=== PATIENT | female | born 1945 | race Caucasian/White ===

== ENCOUNTER 2018-08-30 19:05 | Emergency (ER) | payer MEDICARE ==
[2018-08-30 19:43] LABS: ABSOLUTE EOSINOPHILS # (AUTO) 0.2 10^3/uL (0.0-0.6); ABSOLUTE MONOCYTES (AUTO) 0.6 10^3/uL (0.1-1.4); ABSOLUTE NEUT (AUTO) 7.8 10^3/uL (1.7-8.2); BASOPHILS % (AUTO) 0.4 % (0-2); EOSINOPHILS % (AUTO) 1.7 % (0-6); HEMATOCRIT 36.7 % (36.0-47.0); HEMOGLOBIN 12.5 g/dL (12.0-15.5); LYMPHOCYTES % (AUTO) 25.4 % (13-45); MEAN CORPUSCULAR HEMOGLOBIN 29.7 pg (27.0-33.4); MEAN CORPUSCULAR HGB CONC 34.1 g/dL (32.0-36.0); MEAN CORPUSCULAR VOLUME 87 fl (80-97); MONOCYTES % (AUTO) 5.5 % (3-13); PLATELET COUNT 249 10^3/uL (150-450); RED BLOOD COUNT 4.22 10^6/uL (3.72-5.28); RED CELL DISTRIBUTION WIDTH 13.9 % (11.5-14.0); TOTAL CELLS COUNTED % (AUTO) 100 %; WHITE BLOOD COUNT 11.7 10^3/uL (4.0-10.5)
--- NOTE | 2018-08-30 19:45 | ER Document Report ---
ED General - General Chief Complaint: Near Syncope Stated Complaint: PALPITATIONS Time Seen by Provider: 08/30/18 19:15 Notes: Patient is a 73-year-old female presenting to the emergency department via EMS for syncopal episode. Patient is in the emergency room with her son who witnessed the event. Today was the patient's 's . Family states they have been on her feet all day which is abnormal for the patient. Son states the patient was at dinner when she had a blank stare on her face. Son states her eyes rolled back into her head and she had some minor arm twitching. Son states patient was not responding to him at this time. This incident lasted 1 minute. Son stated it took about 4 minutes for the patient to come completely around to her baseline. Son stated the patient was then telling everyone not to worry about her and was upset that 911 was called. Family denies that the pt. ever fell to the ground, also denies hitting her head neck or back. Patient states she remembers feeling as though she was drunk. She states she felt woozy and then remembers yelling at her son for calling 911. Patient states she has not had any EtOH today. Patient states within the last 3 weeks she was to her primary care provider for shortness of breath. States her BNP was around 1400. States they increased her Lasix and her Coreg. States she also got an echo 2 weeks ago. States her social service manager Dr. Zazueta told her that her ECHO was normal. Patient states she is scheduled for a stress test this Friday. States her last stress test was 3 years ago. Patient states since increase in Lasix she has no longer felt short of breath and she also has noticed no swelling in bilateral legs. Patient is currently denying all complaints to include chest pain, shortness of breath, nausea, vomiting, diarrhea, fever, URI symptoms, dysuria, abdominal pain. Patient's social service manager is Dr. Zazueta, PCP Dr. Prather. Past medical history: Congestive heart failure, hypertension, hyperlipidemia, coronary artery disease, depression Medications: Lasix, Wellbutrin, atorvastatin, Coreg Allergies: Sulfa Surgical history: CABG with aortic valve replacement, cholecystectomy, hysterectomy, appendectomy - Related Data Allergies/Adverse Reactions: Sulfa (Sulfonamide Antibiotics) Allergy (Verified 08/30/18 19:45) Past Medical History - General Information source: Patient, Relative - Social History Smoking Status: Unknown if Ever Smoked Lives with: Family Family History: Reviewed & Not Pertinent Review of Systems - Review of Systems Constitutional: See HPI EENT: See HPI Cardiovascular: See HPI Respiratory: See HPI Gastrointestinal: See HPI Genitourinary: See HPI Female Genitourinary: See HPI Musculoskeletal: See HPI Skin: See HPI Hematologic/Lymphatic: See HPI Neurological/Psychological: See HPI Physical Exam - Vital signs Vitals: Resp Pulse Ox 12 98 08/30/18 19:24 08/30/18 19:24 - Notes Notes: GENERAL: Alert, interacts well. No acute distress. HEAD: Normocephalic, atraumatic. EYES: Pupils equal, round, and reactive to light. Extraocular movements intact. ENT: Oral mucosa moist, tongue midline. NECK: Full range of motion. Supple. Trachea midline. LUNGS: Clear to auscultation bilaterally, no wheezes, rales, or rhonchi. No respiratory distress. HEART: Regular rate and rhythm. No murmur ABDOMEN: Soft, non-tender. Non-distended. Bowel sounds present in all 4 quadrants. EXTREMITIES: Moves all 4 extremities spontaneously. No edema, normal radial and dorsalis pedis pulses bilaterally. No cyanosis. BACK: no cervical, thoracic, lumbar midline tenderness. No saddle anesthesia, normal distal neurovascular exam. NEUROLOGICAL: Alert and oriented x3. Normal speech. PSYCH: Normal affect, normal mood. SKIN: Warm, dry, normal turgor. No rashes or lesions noted. CVA SCALE 0 Course - Re-evaluation Re-evalutation: Discussed case with Dr. Titus who recommends offering the patient admission if wanted. Patient continues to deny chest pain or shortness of breath at any point in time. Also continues to state that her BNP was 1400 at her last primary care visit. States she did not eat at all today and was on her feet all day. States it has been very stressful due to today being her 's . Patient states she has a stress test scheduled for this Friday. States she will call her primary care Dr. Prather in the morning to discuss what happened. Patient adamant about being discharged. States she does not want to be admitted. Urine does show signs of infection we will treat for same. Culture sent. Close return precautions discussed with patient and patient's son in the room. Patient at mental baseline entire stay in the emergency department. - Vital Signs Vital signs: Temp Pulse Resp BP Pulse Ox 98.0 F 18 133/52 H 97 08/30/18 22:52 08/30/18 22:52 08/30/18 22:52 08/30/18 22:52 - Laboratory Result Diagrams: 08/30/18 18:50 08/30/18 18:50 Laboratory results interpreted by me: 08/30/18 08/30/18 08/30/18 18:10 18:50 18:50 WBC 11.7 H Potassium 3.2 L Glucose 140 H Creatine Kinase 21 L NT-Pro-B Natriuret Pep Urine Protein 100 H Urine Urobilinogen 2.0 H Ur Leukocyte Esterase TRACE H 08/30/18 18:50 WBC Potassium Glucose Creatine Kinase NT-Pro-B Natriuret Pep 1480 H Urine Protein Urine Urobilinogen Ur Leukocyte Esterase Discharge - Discharge Clinical Impression: Urinary tract infection Qualifiers: Urinary tract infection type: acute cystitis Hematuria presence: without hematuria Qualified Code(s): N30.00 - Acute cystitis without hematuria Syncope Qualifiers: Syncope type: unspecified Qualified Code(s): R55 - Syncope and collapse Condition: Stable Disposition: HOME, SELF-CARE Instructions: Cephalexin ([facility]), Urinary Tract Infection ([facility]) Additional Instructions: As we discussed you have been seen in the emergency room for syncope. Your lab results show no signs of overwhelming infection. They also showed no obvious signs of bleeding. You should call your primary care provider in the next 24- 48 hours for follow-up. Please keep your appointment for Friday for your cardiac stress test. Take antibiotics as prescribed for urinary tract infection. Return to the emergency room should you have any chest pain, shortness of breath, pass out again, or any other concerning symptoms. Prescriptions: Cephalexin Monohydrate [Keflex 500 mg Capsule] 500 mg PO BID 7 Days #14 capsule Referrals: JABARI PRATHER MD [Primary Care Provider] - Follow up as needed
--- NOTE | 2018-08-30 19:45 | EKG REPORT ---
SEVERITY:- ABNORMAL ECG - SINUS RHYTHM LEFT BUNDLE BRANCH BLOCK TYPE OF IVCD : Confirmed by: Alaina Chirinos MD 30-Aug-2018 19:45:30
[2018-08-30 19:50] LABS: ALANINE AMINOTRANSFERASE 15 U/L (9-52); ALBUMIN 3.8 g/dL (3.5-5.0); ALKALINE PHOSPHATASE 60 U/L (38-126); ANION GAP 9 (5-19); ASPARTATE AMINO TRANSFERASE 15 U/L (14-36); BILIRUBIN,DIRECT 0.3 mg/dL (0.0-0.4); BILIRUBIN,TOTAL 0.8 mg/dL (0.2-1.3); BLOOD UREA NITROGEN 13 mg/dL (7-20); CALCIUM 8.9 mg/dL (8.4-10.2); CARBON DIOXIDE 28 mmol/L (22-30); CHLORIDE 104 mmol/L (98-107); CREATINE KINASE 21 U/L (30-135); GLUCOSE 140 mg/dL (75-110); POTASSIUM 3.2 mmol/L (3.6-5.0); SODIUM 140.5 mmol/L (137-145); TOTAL PROTEIN 7.2 g/dL (6.3-8.2)
[2018-08-30 20:02] LABS: CREATINE KINASE MB 0.37 ng/mL (<4.55); TROPONIN I 0.019 ng/mL
[2018-08-30 20:40] LABS: APPEARANCE,URINE TURBID; BILIRUBIN,URINE NEGATIVE (NEGATIVE); COLOR,URINE AMBER; GLUCOSE, URINE NEGATIVE (NEGATIVE); KETONES,URINE NEGATIVE (NEGATIVE); LEUKOCYTE ESTERASE,URINE TRACE (NEGATIVE); NITRITE,URINE NEGATIVE (NEGATIVE); PROTEIN,URINE 100 mg/dL (NEGATIVE); URINE SPECIFIC GRAVITY 1.028
--- NOTE | 2018-08-30 20:50 | RADIOLOGY REPORT (SQ) ---
EXAM DESCRIPTION: CHEST SINGLE VIEW COMPLETED DATE/TIME: 08/30/2018 8:14 pm REASON FOR STUDY: CHF SOB COMPARISON: None. NUMBER OF VIEWS: One view. TECHNIQUE: Single frontal radiographic view of the chest acquired. LIMITATIONS: None. FINDINGS: LUNGS AND PLEURA: No opacities, masses or pneumothorax. Small left pleural effusion. MEDIASTINUM AND HILAR STRUCTURES: No masses. Contour normal. HEART AND VASCULAR STRUCTURES: Heart normal in size. Normal vasculature. Prior CABG. BONES: No acute findings. HARDWARE: CABG hardware. OTHER: No other significant finding. IMPRESSION: Small left pleural effusion. TECHNICAL DOCUMENTATION: JOB ID: [id number] [id number] 2010 [employer]- All Rights Reserved Reading location - IP/workstation name: [email or web address]
[2018-08-30 22:59] VITALS: BP 133/52
== END 2018-08-30 22:59 | disposition home or self-care (01) ==
LOC: ER 19:05
DX: N30.00 Acute cystitis without hematuria (principal); R55 Syncope and collapse; R00.2 Palpitations; R42 Dizziness and giddiness; I50.9 Heart failure, unspecified; I10 Essential (primary) hypertension; E78.5 Hyperlipidemia, unspecified; I25.10 Atherosclerotic heart disease of native coronary artery without angina pectoris; Z79.899 Other long term (current) drug therapy; Z95.1 Presence of aortocoronary bypass graft
CPT/HCPCS: 36415; 71045; 80053; 81001; 82550; 82553; 83880; 84484; 85025; 87086; 93005; 93010; 99285

== ENCOUNTER 2019-11-22 09:26 | Emergency (ER) | payer MEDICARE ==
[2019-11-22 09:48] LABS: HEMATOCRIT 40.1 % (36.0-47.0); HEMOGLOBIN 13.5 g/dL (12.0-15.5); MEAN CORPUSCULAR HEMOGLOBIN 30.4 pg (27.0-33.4); MEAN CORPUSCULAR HGB CONC 33.8 g/dL (32.0-36.0); MEAN CORPUSCULAR VOLUME 90 fl (80-97); PLATELET COUNT 197 10^3/uL (150-450); RED BLOOD COUNT 4.45 10^6/uL (3.72-5.28); RED CELL DISTRIBUTION WIDTH 14.7 % (11.5-14.0); WHITE BLOOD COUNT 8.7 10^3/uL (4.0-10.5)
[2019-11-22] MEDS ORDERED: LIDOCAINE 1%/EPINEPHRINE INJ 20 ML VIAL INJ ONE (09:49)
--- NOTE | 2019-11-22 09:51 | ER Document Report ---
ED General - General Chief Complaint: Fall Injury Stated Complaint: FALL Primary Care Provider: FLORIAN KIM MD [Primary Care Provider] - Follow up as needed Notes: 74-year-old female presents with syncope. [place], has CHF normally gets short of breath, but also does not take Lasix until the afternoon if she has to be out in public. She became very winded and leaned against the low wall. She knew she was on the ground with a bleeding head wound. She does not have neck pain or neuro symptoms. She denies chest pain or shortness of breath beyond her usual. Laceration to the occiput. No blood thinners. - Related Data Allergies/Adverse Reactions: Sulfa (Sulfonamide Antibiotics) Allergy (Verified 08/30/18 19:45) Home Medications: lasix, potssium, carvedilol, ibuprofen Past Medical History - Social History Smoking Status: Never Smoker Family History: Reviewed & Not Pertinent Patient has suicidal ideation: No Patient has homicidal ideation: No - Past Medical History Cardiac Medical History: Reports: Hx Congestive Heart Failure, Hx Hype rcholesterolemia, Hx Hypertension Renal/ Medical History: Denies: Hx Peritoneal Dialysis Past Surgical History: Reports: Hx Appendectomy, Hx Cardiac Surgery - aortic valve replacement, Hx Cholecystectomy, Hx Hysterectomy Review of Systems - Review of Systems Notes: REVIEW OF SYSTEMS GEN: Denies fever, chills, weight loss ENT: Denies sore throat, nasal discharge, ear pain EYES: Denies blurry vision, eye pain, discharge CV: Denies chest pain, palpitations, edema RESP: Dyspnea on exertion GI: Denies abdominal pain, nausea, vomiting, diarrhea MSK: Denies joint pain/swelling, edema, SKIN: Denies rash, skin lesions LYMPH: Denies swollen glands/lymph nodes NEURO: Headache, denies focal weakness or numbness, dizziness PSYCH: Denies depression, suicidal or homicidal ideation PHYSICAL EXAMINATION General: No acute distress, well-nourished Head: 3 cm right occipital laceration bleeding controlled normocephalic ENT: Mouth normal, oropharynx moist, no exudates or tonsillar enlargement Eyes: Conjunctiva normal, pupils equal, lids normal Neck: No JVD, supple, no guarding CVS: Normal rate, regular rhythm, no murmurs Resp: No resp distress, equal and normal breath sounds bilaterally GI: Nondistended, soft, no tenderness to palpation, no rebound or guarding Ext: No deformities, trace bilateral nonpitting foot/ankle edema, normal range of motion in upper and lower ext Back: No CVA or midline TTP Skin: No rash, warm Lymphatic: No lymphadeopathy noted Neuro: Awake, alert. Face symmetric. GCS 15. Physical Exam - Vital signs Vitals: Resp Pulse Ox 10 L 94 11/22/19 09:40 11/22/19 09:40 Course - Re-evaluation Re-evalutation: 11/22/19 12:32 Patient presents with syncope. She was exerting herself with known CHF and ski pped her diuretic dose, I suspect she became dizzy/lightheaded and may be hypoxic and had syncope but she is now asymptomatic. On further inspection the lack to her head is actually a bruise and abrasion and there is nothing to sew up. Her CT head is negative her labs are normal her EKG is stable, and on the monitor she has normal vital signs and is asymptomatic. She is stable for discharge back to her home and will follow up with primary care. I have discussed with the patient there likely diagnosis, aftercare plan, follow-up plans and my usual and customary return precautions. They verbalized understanding of this. - Vital Signs Vital signs: Temp Pulse Resp BP Pulse Ox 97.8 F 94 12 113/79 96 11/22/19 12:01 11/22/19 12:01 11/22/19 12:01 11/22/19 12:01 11/22/19 12:01 - Laboratory Result Diagrams: 11/22/19 09:37 11/22/19 09:37 Laboratory results interpreted by me: 11/22/19 11/22/19 09:37 09:37 RDW 14.7 H Glucose 120 H Discharge - Discharge Clinical Impression: Scalp laceration Qualifiers: Encounter type: initial encounter Qualified Code(s): S01.01XA - Laceration without foreign body of scalp, initial encounter Syncope Qualifiers: Syncope type: unspecified Qualified Code(s): R55 - Syncope and collapse Condition: Good Disposition: HOME, SELF-CARE Instructions: Laceration Care ([facility]), Syncopal Episode ([facility]) Additional Instructions: Neil need to be removed in 10 days Referrals: KIM,FLORIAN A, MD [Primary Care Provider] - Follow up as needed
[2019-11-22 09:53] LABS: INTERNATIONAL RATION (INR) 1.21; PROTHROMBIN TIME 15.4 SEC (11.4-15.4)
[2019-11-22 10:17] LABS: ALKALINE PHOSPHATASE 64 U/L (38-126); ANION GAP 10 (5-19); ASPARTATE AMINO TRANSFERASE 23 U/L (14-36); BILIRUBIN,DIRECT 0.2 mg/dL (0.0-0.4); BLOOD UREA NITROGEN 15 mg/dL (7-20); CALCIUM 9.1 mg/dL (8.4-10.2); CARBON DIOXIDE 24 mmol/L (22-30); CHLORIDE 106 mmol/L (98-107); GLUCOSE 120 mg/dL (75-110); POTASSIUM 4.2 mmol/L (3.6-5.0); TOTAL PROTEIN 7.5 g/dL (6.3-8.2)
[2019-11-22 10:31] LABS: ABSOLUTE LYMPHOCYTES# (MANUAL) 1.6 10^3/uL (0.5-4.7); ABSOLUTE MONOCYTES # (MANUAL) 0.3 10^3/uL (0.1-1.4); BASOPHILS % (MANUAL) 0 % (0-2); EOSINOPHILS % (MANUAL) 2 % (0-6); LYMPHOCYTES % (MANUAL) 15 % (13-45); MONOCYTES % (MANUAL) 4 % (3-13); SEGMENTED NEUTROPHILS % (MAN) 76 % (42-78); TOTAL CELLS COUNTED 100
[2019-11-22 10:32] LABS: OVALOCYTES 1+; PLATELET COMMENT ADEQUATE; POIKILOCYTOSIS 1+
--- NOTE | 2019-11-22 10:34 | RADIOLOGY REPORT (SQ) ---
EXAM DESCRIPTION: CT HEAD WITHOUT COMPLETED DATE/TIME: 11/22/2019 10:20 am REASON FOR STUDY: fall lac COMPARISON: None. TECHNIQUE: Axial images acquired through the brain without intravenous contrast. Images reviewed wi th bone, brain and subdural windows. Additional sagittal and coronal reconstructions were generated. Images stored on PACS. All CT scanners at this facility use dose modulation, iterative reconstruction, and/or weight based d osing when appropriate to reduce radiation dose to as low as reasonably achievable (ALARA). [facility]: Dose Right [facility]: CareDose [facility]: Dose Right [facility]: Teradose 4D [facility]: [employer] RADIATION DOSE: CT Rad equipment meets quality standard of care and radiation dose reduction techniq ues were employed. CTDIvol: 48.6 mGy. DLP: 978 mGy-cm. mGy. LIMITATIONS: None. FINDINGS: VENTRICLES: Age appropriate. CEREBRUM: No masses. No hemorrhage. No midline shift. No evidence for acute infarction. Normal gra y/white matter differentiation. No areas of low density in the white matter. CEREBELLUM: No masses. No hemorrhage. No alteration of density. No evidence for acute infarction. EXTRAAXIAL SPACES: Mild prominence compatible with parenchymal volume loss. Nonspecific partially em pty sella turcica. No hemorrhage no mass. ORBITS AND GLOBE: No intra- or extraconal masses. Normal contour of globe without masses. Prior stella ateral cataract surgery. CALVARIUM: No fracture. Lucent lesion along the inner table of the right frontal calvarium, possibly venous Coats. PARANASAL SINUSES: No fluid or mucosal thickening. SOFT TISSUES: Soft tissue swelling along the posterior right parietal calvarium. No radiopaque forei gn body. OTHER: No other significant finding. IMPRESSION: Soft tissue swelling along the right posterior parietal calvarium. No evidence of fract ure or other acute intracranial process. EVIDENCE OF ACUTE STROKE: NO. COMMENT: Quality ID # [id number]: Final reports with documentation of one or more dose reduction techniques (e.g., Automated exposure control, adjustment of the mA and/or kV according to patient size, use of iterative reconstruction technique) TECHNICAL DOCUMENTATION: JOB ID: [id number] [employer]- All Rights Reserved Reading location - IP/workstation name: [email or web address]
[2019-11-22 12:03] VITALS: BP 113/79
--- NOTE | 2019-11-22 22:11 | EKG REPORT ---
SEVERITY:- ABNORMAL ECG - SINUS RHYTHM NONSPECIFIC IVCD WITH LAD LEFT VENTRICULAR HYPERTROPHY : Confirmed by: Wilma Dominguez 22-Nov-2019 22:10:18
== END 2019-11-22 12:03 | disposition home or self-care (01) ==
LOC: ER 09:26
DX: S01.01XA Laceration without foreign body of scalp, initial encounter (principal); X58.XXXA Exposure to other specified factors, initial encounter; R55 Syncope and collapse; R51 Headache; I11.0 Hypertensive heart disease with heart failure; I50.9 Heart failure, unspecified; T50.1X6A Underdosing of loop [high-ceiling] diuretics, initial encounter; Z91.128 Patient's intentional underdosing of medication regimen for other reason; Z91.14 Patient's other noncompliance with medication regimen; Z79.899 Other long term (current) drug therapy; Z79.1 Long term (current) use of non-steroidal anti-inflammatories (NSAID); Z95.2 Presence of prosthetic heart valve; Z88.2 Allergy status to sulfonamides
CPT/HCPCS: 93005; 99284; 36415; 85025; 85610; 80053; 70450; 93010; J3490